=== PATIENT | female | born 1990 | race Caucasian/White ===

== ENCOUNTER 2022-10-23 09:35 | Emergency (ER) | payer BC ==
[~2022-10-23] VITALS: Ht 162.6 cm; Wt 66.8 kg
[2022-10-23 09:51] VITALS: BP 128/77
[2022-10-23 10:00] VITALS: BP 123/84
[2022-10-23 10:15] VITALS: BP 119/80
[2022-10-23 10:35] LABS: HEMATOCRIT 40.4 % (37.0-47.0); IMMATURE GRANULOCYTES 0.2 % (0.0-5.0); MEAN CELL VOLUME 89.4 fL CALC (80.0-100.0); MEAN CORPUSCULAR HGB CONC 34.7 g/dL CAL (32.0-36.0); NEUT# 8.65 thou/uL (2.00-7.15); RED BLOOD COUNT 4.52 mill/uL (4.20-5.60); RED CELL DISTRI WIDTH 12.1 % (11.5-15.5)
[2022-10-23 10:56] LABS: ALBUMIN 4.5 g/dL (3.2-5.0); ALKALINE PHOSPHATASE 64 u/l (38-126); ANION GAP 11 (6-22 (CALC)); BILIRUBIN, TOTAL 0.8 mg/dL (0.0-1.4); BUN 14 mg/dL (7-17); BUN/CREATININE RATIO 23 (12-20 (CALC)); CARBON DIOXIDE 27 mmol/l (22-30); CHLORIDE 105 mmol/l (95-108); CREATININE 0.6 mg/dL (0.5-1.0); GFR FOR AFR.AMER. > 60 ML/MIN (>=60 (CALC)); GFR OTHER RACES > 60 ML/MIN (>=60 (CALC)); LIPASE 85 u/l (23-300); POTASSIUM 3.9 mmol/l (3.5-5.1); SGOT/AST 21 u/l (14-36); SODIUM 140 mmol/l (137-146); TOTAL PROTEIN 7.2 g/dL (6.3-8.2)
[2022-10-23 12:35] LABS: URINE BILIRUBIN - DIPSTICK NEGATIVE (NEGATIVE); URINE BLOOD DIPSTICK MODERATE (NEGATIVE); URINE COLOR YELLOW; URINE GLUCOSE - DIPSTICK NEGATIVE (NEGATIVE); URINE KETONE NEGATIVE (NEGATIVE); URINE LEUK ESTERASE NEGATIVE (NEGATIVE); URINE PROTEIN - DIPSTICK NEGATIVE (NEG-TRACE); URINE SPECIFIC GRAVITY 1.015; URINE UROBILINOGEN - DIPSTICK 0.2 E.U./dL (0.2)
[2022-10-23 12:39] LABS: URINE NITRITE - DIPSTICK NEGATIVE (Negative)
[2022-10-23 12:44] LABS: URINE SQUAMOUS EPITHELIAL CELL MODERATE EPI/hpf (0-FEW); URINE WBC 0-2 WBC/hpf (0-5)
[2022-10-23 12:45] LABS: URINE BACTERIA FEW hpf; URINE RBC 0-2 RBC/hpf (0-5)
[2022-10-23] MEDS ORDERED: ONDANSETRON4 MG PO (12:58)
[2022-10-23 14:15] VITALS: BP 119/80
== END 2022-10-23 14:15 | disposition home or self-care (01) | DRG 392 ==
LOC: ED 09:35
PROVIDERS: Emergency Medicine
DX: K52.9 Noninfective gastroenteritis and colitis, unspecified (principal)